=== PATIENT | female | born 1990 | race African-American/Black ===

== ENCOUNTER 2016-08-27 22:51 | Outpatient (CLI) | payer OTHER ==
[~2016-08-27] VITALS: Ht 167.6 cm; Wt 136.1 kg
[~2016-08-27 22:51] MED LIST: ESCITALOPRAM OX10 MG PO; FLEXERIL10 MG PO; FLONASE16 G1 BOTH NARES; LO LOESTRIN FE1 EACH PO; MOTRIN800 MG PO; MUCUS ER600 MG PO; NAPROSYN500 MG PO; TRAZODONE HCL50 MG PO; ULTRACET1 TABLET PO
[2016-08-27 23:29] VITALS: BP 119/58
[2016-08-27] MEDS ORDERED: PRENATAL TABLE1 EACH PO (23:31)
[2016-08-27 23:49] LABS: BILIRUBIN NEGATIVE; BLOOD NEGATIVE; COLOR YELLOW ((YELLOW)); GLUCOSE (STRIP) NEGATIVE; KETONES 5; LEUKOCYTES NEGATIVE; NITRITE NEGATIVE; PROTEIN (STRIP) NEGATIVE; SPECIFIC GRAVITY 1.016 (1.000-1.030)
[2016-08-27 23:59] LABS: ADD MIUA? NO
[2016-08-28 06:22] LABS: CANDIDA DNA PROBE NEGATIVE; GARDNERELLA DNA PROBE NEGATIVE; INTERNAL CONTROL VALID? YES
== END 2016-08-28 00:22 | disposition home or self-care (01) ==
LOC: LDRP-OP 22:51 → 2WEST 22:52 → LDRP-OP 11-10 15:04
PROVIDERS: Advanced Practice Midwife
DX: M54.9 Dorsalgia, unspecified (principal); O99.89 Other specified diseases and conditions complicating pregnancy, childbirth and the puerperium; Z3A.35 35 weeks gestation of pregnancy
CPT/HCPCS: 59025; 81003; 87086; 87480; 87510; 87660; G0378

== ENCOUNTER 2016-09-13 06:38 | Inpatient (IN) | payer OTHER ==
[~2016-09-13] VITALS: Ht 167.6 cm; Wt 141.4 kg
[2016-09-13] VITALS (7 sets, daily range): BP systolic 100–128; BP diastolic 57–75
[~2016-09-13 06:38] MED LIST changes: +PRENATAL TABLE1 EACH PO
[2016-09-13 08:29] LABS: HEMATOCRIT 32.5 % (36.0-46.0); MCH 32.3 PG (29.0-34.0); MCHC 35.4 G/DL (30.0-36.0); MCV 91.3 FL (83-99); MEAN PLAT.VOLUME 10.3 uM^3 (9.5-12.4); PLATELET COUNT 221 K/uL (156-360); RBC DIS.WIDTH-CV 12.5 % (11.8-14.6); RBC DIS.WIDTH-SD 41.7 % (39-53); RED BLOOD COUNT 3.56 M/uL (3.80-5.20); WHITE BLOOD COUNT 8.9 K/uL (4.1-10.2)
[2016-09-13 16:33] LABS: POINT-OF-CARE METER ID UU13113770
[2016-09-14 02:35] VITALS: BP 118/63
[2016-09-14 07:05] LABS: EOSINOPHIL (%) 0.6 % (0-5); EOSINOPHIL COUNT 0.1 K/uL (0-0.3); IMMATURE GRANULOCYTE (%) 0.2 % (0.0-0.7); LYMPHOCYTE COUNT 2.6 K/uL (1.0-2.8); MCH 30.5 PG (29.0-34.0); MCHC 33.2 G/DL (30.0-36.0); MCV 91.9 FL (83-99); MEAN PLAT.VOLUME 10.5 uM^3 (9.5-12.4); MONOCYTE (%) 5.1 % (3-12); MONOCYTE COUNT 0.7 K/uL (0-0.8); NEUTROPHIL (%) 75.2 % (45-76); NEUTROPHIL COUNT 10.4 K/uL (1.8-6.4); PLATELET COUNT 238 K/uL (156-360); RBC DIS.WIDTH-CV 12.5 % (11.8-14.6); RBC DIS.WIDTH-SD 42.1 % (39-53)
[2016-09-14 07:08] LABS: WHITE BLOOD COUNT 13.8 K/uL (4.1-10.2)
[2016-09-14 07:21] VITALS: BP 135/78
[2016-09-14 11:00] VITALS: BP 134/72
[2016-09-14 15:00] VITALS: BP 120/74
[2016-09-14 19:34] VITALS: BP 133/73
[2016-09-15 01:09] VITALS: BP 155/86
[2016-09-15 03:25] VITALS: BP 117/75
[2016-09-15 08:40] VITALS: BP 125/73
[2016-09-15 12:00] VITALS: BP 141/82
[2016-09-15 17:28] VITALS: BP 149/69
[2016-09-15 23:00] VITALS: BP 136/80
[2016-09-16 08:10] VITALS: BP 131/66
[2016-09-16 14:20] VITALS: BP 158/82
[2016-09-16 15:03] VITALS: BP 150/78
[2016-09-16 16:15] LABS: ALKALINE PHOSPHATASE 96 IU/L (3-129); ANION GAP 9 MEQ/L (2-14); CHLORIDE 107 MEQ/L (99-109); GFR ESTIMATE (CALCULATED) > 59 mL/min/; GLUCOSE 98 mg/dL (70-99); POTASSIUM 4.2 MEQ/L (3.7-5.4); SAMPLE HEMOLYSIS CHECK 0; SAMPLE ICTERIC CHECK 0; SAMPLE LIPEMIA CHECK 0; SODIUM 138 MEQ/L (136-147); TOTAL BILIRUBIN 0.3 MG/DL (0.0-1.0); UREA NITROGEN (BUN) 10 mg/dL (9-23)
[2016-09-16 16:16] LABS: UR CREATININE CONCENTRATION 108.2 MG/DL
[2016-09-16 23:15] VITALS: BP 121/65
[2016-09-17 02:52] VITALS: BP 117/69
[2016-09-17 04:05] VITALS: BP 118/64
[2016-09-17 07:15] VITALS: BP 136/76
[2016-09-17] MEDS ORDERED: ENDOCET 5-3251 EACH PO (10:51)
[2016-09-17] MEDS ORDERED: IBUPROFEN800 MG PO (10:51)
[2016-09-17] MEDS ORDERED: DOCUSATE SODIU100 MG PO (10:51)
== END 2016-09-17 16:43 | disposition home or self-care (01) | DRG 765 ==
LOC: 2WEST 06:38 → 2SOUTH 16:55 → 2WEST 09-14 10:21 → 2SOUTH 09-25 10:07
PROVIDERS: Obstetrics & Gynecology
PROC: 10D00Z1 Extraction of Products of Conception, Low, Open Approach (ICD-10-PCS; principal; 2016-09-13)
DX: O36.5930 Maternal care for other known or suspected poor fetal growth, third trimester, not applicable or unspecified (principal); O32.1XX0 Maternal care for breech presentation, not applicable or unspecified; O34.211 Maternal care for low transverse scar from previous cesarean delivery; O99.214 Obesity complicating childbirth; E66.01 Morbid (severe) obesity due to excess calories; Z68.42 Body mass index [BMI] 45.0-49.9, adult; O99.334 Smoking (tobacco) complicating childbirth; F17.200 Nicotine dependence, unspecified, uncomplicated; Z37.0 Single live birth; Z3A.37 37 weeks gestation of pregnancy
CPT/HCPCS: 80053; 82570; 82948; 84156; 85025; 85027; 86850; 86900; 86901; 88307; J0690; J1100; J2274; J2405; J3010; J7120

== ENCOUNTER 2016-09-30 13:33 | Emergency (ER) | payer OTHER ==
[~2016-09-30] VITALS: Ht 167.6 cm; Wt 131.0 kg
[~2016-09-30 13:33] MED LIST changes: +DOCUSATE SODIU100 MG PO; +ENDOCET 5-3251 EACH PO; +IBUPROFEN800 MG PO
[2016-09-30] MEDS ORDERED: NAPROXEN500 MG PO (15:22)
[2016-09-30] MEDS ORDERED: PREDNISONE20 MG PO (15:22)
[2016-09-30] MEDS ORDERED: LIDODERM 5% P1 PATCH TD (15:22)
[2016-09-30 15:53] VITALS: BP 117/89
== END 2016-09-30 16:12 | disposition home or self-care (01) ==
LOC: EME 13:33
DX: M54.31 Sciatica, right side (principal)
CPT/HCPCS: 99281; 99284; J1885; J3010; J7512

== ENCOUNTER 2016-12-06 11:09 | Emergency (ER) | payer OTHER ==
[~2016-12-06] VITALS: Ht 167.6 cm; Wt 133.0 kg
[~2016-12-06 11:09] MED LIST changes: +LIDODERM 5% P1 PATCH TD; +NAPROXEN500 MG PO; +PREDNISONE20 MG PO
[2016-12-06] MEDS ORDERED: PERCOCET 5/31 TABLET PO (11:37)
[2016-12-06] MEDS ORDERED: PEN-VEE K,VEET500 MG PO (11:37)
[2016-12-06 12:13] VITALS: BP 136/77
== END 2016-12-06 12:13 | disposition home or self-care (01) ==
LOC: EME 11:09
PROC: 3E0T3BZ Introduction of Anesthetic Agent into Peripheral Nerves and Plexi, Percutaneous Approach (ICD-10-PCS; principal; 2016-12-06)
DX: K08.89 Other specified disorders of teeth and supporting structures (principal); F17.200 Nicotine dependence, unspecified, uncomplicated
CPT/HCPCS: 99281; 99283; S0020